=== PATIENT | female | born 1960 | race Caucasian/White ===

== ENCOUNTER 2019-12-31 18:53 | Emergency (ER) | payer OTHER ==
[~2019-12-31] VITALS: Ht 180.3 cm; Wt 136.1 kg
[2019-12-31] MEDS ORDERED: CLONAZEPAM2 MG PO (19:59)
[2019-12-31] MEDS ORDERED: RIZATRIPTAN10 MG PO (20:00)
[2019-12-31] MEDS ORDERED: CYMBALTA60 MG PO (20:00)
[2019-12-31] MEDS ORDERED: TRAZODONE HCL150 MG (20:00)
[2019-12-31] MEDS ORDERED: ABILIFY5 MG (20:00)
[2019-12-31] MEDS ORDERED: PROTONIX40 M1 PO (20:01)
[2019-12-31] MEDS ORDERED: SYNTHROID50 MCG PO (20:01)
[2019-12-31] MEDS ORDERED: TOPAMAX50 MG (20:02)
[2019-12-31] MEDS ORDERED: ADVAIR 100-501 EACH IH (20:02)
[2019-12-31] MEDS ORDERED: SINGULAIR10 MG PO (20:02)
[2019-12-31] MEDS ORDERED: METOTEXATE (20:02)
[2019-12-31] MEDS ORDERED: ORPHENADRINE CI25 GM (20:03)
== END 2020-01-01 00:03 | disposition home or self-care (01) ==
LOC: ER 18:53
DX: S52.572A Other intraarticular fracture of lower end of left radius, initial encounter for closed fracture (principal); S80.02XA Contusion of left knee, initial encounter; W18.39XA Other fall on same level, initial encounter; Y93.89 Activity, other specified; Y92.89 Other specified places as the place of occurrence of the external cause; Y99.8 Other external cause status

== ENCOUNTER 2020-10-05 07:10 | Day surgery (SDC) | payer OTHER ==
[~2020-10-05 07:10] MED LIST: ABILIFY5 MG; ADVAIR 100-501 EACH IH; CLONAZEPAM2 MG PO; CYMBALTA60 MG PO; METOTEXATE; ORPHENADRINE CI25 GM; PROTONIX40 M1 PO; RIZATRIPTAN10 MG PO; SINGULAIR10 MG PO; SYNTHROID50 MCG PO; TOPAMAX50 MG; TRAZODONE HCL150 MG
[2020-10-05] MEDS ORDERED: OXYC1TAB9 PO (10:14)
[2020-10-05] MEDS ORDERED: Septra Ds Tablet PO (10:14)
== END 2020-10-05 12:58 | disposition home or self-care (01) ==
LOC: CIR.AMB 07:10
PROVIDERS: ATTEND Orthopaedic Surgery Sports Medicine
DX: S80.02XA Contusion of left knee, initial encounter (principal); Z20.828 Contact with and (suspected) exposure to other viral communicable diseases

== ENCOUNTER 2021-06-15 08:30 | Inpatient (IN) | payer OTHER ==
[~2021-06-15] VITALS: Ht 180.3 cm; Wt 88.5 kg
[~2021-06-15 08:30] MED LIST changes: +OXYC1TAB9 PO; +Septra Ds Tablet PO
[2021-06-15] MEDS ORDERED: TRAZODONE HCL150 MG PO (10:33)
[2021-06-15] MEDS ORDERED: CYMBALTA60 MG PO (10:34)
[2021-06-15] MEDS ORDERED: ABILIFY2 MG PO (10:34)
[2021-06-15] MEDS ORDERED: FOLIC PO (10:35)
[2021-06-15] MEDS ORDERED: SYNTHROID75 MCG PO (10:35)
[2021-06-15] MEDS ORDERED: RIZATRIPTAN10 MG PO (10:35)
[2021-06-15] MEDS ORDERED: [UNRECOGNIZED DRUG - OTHER] PO (10:37)
[2021-06-15] MEDS ORDERED: BENADR PO (10:38)
[2021-06-15] MEDS ORDERED: HUMIRA IM (10:39)
[2021-06-15] MEDS ORDERED: NARATRIPTAN HC2.5 MG PO (10:41)
[2021-06-15] MEDS ORDERED: AIMOVIG AU70 MG/1 ML SUBCUTANEO (10:42)
[2021-06-21] MEDS ORDERED: METHOTREXATE2.5 MG (08:01)
[2021-06-21] MEDS ORDERED: FLONASE16 GM (08:01)
[2021-06-21] MEDS ORDERED: FOLIC ACID1 MG (08:01)
[2021-06-21] MEDS ORDERED: HYOSCYAMINE0.125 M1 (08:02)
[2021-06-21] MEDS ORDERED: HUMIRA PEN40 MG/0.2 (08:04)
[2021-06-21] MEDS ORDERED: BENADRYL25 MG (08:04)
[2021-06-23] MEDS ORDERED: OXYC1TAB9 PO (06:12)
[2021-06-23] MEDS ORDERED: XARELTO10 MG PO (06:12)
[2021-06-23] MEDS ORDERED: BACTRIM DS TAB1 EACH PO (06:12)
[2021-06-23] MEDS ORDERED: INTEGRA PLUS C1 EACH PO (06:12)
== END 2021-06-23 20:42 | DRG 470 ==
LOC: SURH 06-21 05:52 → O/R 06-21 05:52 → SURH 06-21 07:00
PROVIDERS: ADMIT Orthopaedic Surgery Sports Medicine; ATTEND Orthopaedic Surgery Sports Medicine
PROC: 3E0F7SF Introduction of Other Gas into Respiratory Tract, Via Natural or Artificial Opening (ICD-10-PCS; 2021-06-21)
PROC: 0SRD0J9 Replacement of Left Knee Joint with Synthetic Substitute, Cemented, Open Approach (ICD-10-PCS; principal; 2021-06-21 07:00)
DX: M21.062 Valgus deformity, not elsewhere classified, left knee (principal); M17.12 Unilateral primary osteoarthritis, left knee; Z20.822 Contact with and (suspected) exposure to COVID-19